=== PATIENT | female | born 1985 | race Caucasian/White ===

== ENCOUNTER → 2021-06-18 | Outpatient (CLI) | payer BC ==
--- NOTE | 2021-06-18 16:12 | KCIC ---
Study: MRI left ankle without contrast INDICATION: Left ankle pain. COMPARISON: No previous MRI. TECHNIQUE: Multiplanar MR imaging of the left ankle performed without the use of intravenous or intra -articular contrast. FINDINGS: Bones/cartilage: Posterior subtalar joint arthrosis with periarticular edema chronic osseous prolifer ation in this region seen emanating from the dorsal margin of the posterior calcaneal facet. There ap pears to be chondral loss at the anteromedial aspect of the ankle joint. No accelerated arthrosis at the midfoot. Ligaments: Mildly patulous anterolateral joint space at the ankle but the distal syndesmosis is intac t and the ATFL remains visualized. Intact CFL and PTFL. Unremarkable deltoid ligament complex. Intact spring and Lisfranc ligaments. Musculotendinous: No tendon tear, significant tendinosis or tenosynovitis. Normal bulk and signal of the intrinsic foot musculature. Sinus Tarsi: Partially edematous but with mostly maintained fatty signal. Tarsal tunnel: Unremarkable. Plantar fascia: Unremarkable. Miscellaneous: Mild synovitis adjacent to the posterior subtalar joint. Small volume of ankle joint f luid primarily at the anterolateral recess. IMPRESSION: 1. 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 Mild associated synovitis. 2. Suspected chondral loss at the anteromedial aspect of the ankle joint. 3. No acute or significant chronic tendon or ligamentous abnormality. Electronically signed by: CONCHITA CROWE MD (06/18/2021 4:09 PM) [id number]
== END ==
LOC: KCIC MRI 14:28
PROVIDERS: ATTEND Podiatrist
DX: S93.402A Sprain of unspecified ligament of left ankle, initial encounter (principal); M19.072 Primary osteoarthritis, left ankle and foot; M65.872 Other synovitis and tenosynovitis, left ankle and foot; M76.72 Peroneal tendinitis, left leg; X58.XXXA Exposure to other specified factors, initial encounter; Y93.89 Activity, other specified; Y92.89 Other specified places as the place of occurrence of the external cause
CPT/HCPCS: 73721